=== PATIENT | male | born 1965 | race Caucasian/White ===

== ENCOUNTER → 2022-07-03 | Outpatient (CLI) | payer OTHER ==
--- NOTE | 2022-07-03 13:40 | CT ---
EXAMINATION TYPE: CT angio chest DATE OF EXAM: 07/03/2022 COMPARISON: None HISTORY: 56-year-old male I71.4, Ascending aortic aneurysm. TECHNIQUE: Contiguous axial scanning of the chest performed without and with IV Contrast, patient inj ected with 100ml mL of Isovue 370. Coronal/sagittal MIP reconstructions performed. 3-D reconstruction s generated on a dedicated independent workstation. CT DLP: 1164.9 mGycm Automated exposure control for dose reduction was used. FINDINGS: Heart normal size without pericardial effusion. Aneurysm aortic root at 4.3 cm. Mild aneurysm ascending aorta 4.1 cm. Conventional arch vessel branching anatomy. Descending thoracic aorta normal caliber. No evidence for aortic dissection. Initial noncontrast images show no evidence for acute intramural h ematoma. No thoracic lymphadenopathy by CT size criteria. 4 mm subpleural pulmonary nodule posterior left upper lobe, axial image 10. Some strandy scarring or atelectasis right middle lobe and posterior left base. No consolidation or pleural effusion. Small hiatal hernia. Otherwise, visualized upper abdomen shows scattered colonic diverticulosis. Mild degenerative disc disease mid to lower thoracic spine. IMPRESSION: 1. ANEURYSMAL AORTIC ROOT AND ASCENDING THORACIC AORTA AT 4.3 AND 4.1 CM, RESPECTIVELY. 2. SOME MINIMAL STRANDY SCARRING OR ATELECTASIS IN THE LUNGS. 3. A 4 MM POSTERIOR LEFT UPPER LOBE PULMONARY NODULE. 6 MONTH FOLLOW-UP CT CHEST TO REASSESS. 4. INCIDENTAL: SMALL HIATAL HERNIA. COLONIC DIVERTICULOSIS.
== END | disposition home or self-care (01) ==
LOC: RADCTMAIN 09:09
PROVIDERS: ATTEND Internal Medicine
DX: I71.21 Aneurysm of the ascending aorta, without rupture (principal); R91.1 Solitary pulmonary nodule; K44.9 Diaphragmatic hernia without obstruction or gangrene; K57.30 Diverticulosis of large intestine without perforation or abscess without bleeding
CPT/HCPCS: 71275; Q9967

== ENCOUNTER → 2023-03-05 | Outpatient (CLI) | payer OTHER, BC ==
--- NOTE | 2023-03-05 10:27 | CT ---
EXAMINATION TYPE: CT angio chest CT DLP: 1115.60 mGycm, Automated exposure control for dose reduction was used. DATE OF EXAM: 03/05/2023 9:56 AM COMPARISON: 07/03/2022 CLINICAL INDICATION:Male, 57 years old with history of AAA; Thoracic AA w/out rupture TECHNIQUE/CONTRAST: CTA scan of the thorax is performed with IV Contrast, patient injected with 100 mL of Isovue 370, MIP images are created and reviewed these are created on a separate workstation.. FINDINGS: Lungs/Pleura: No evidence of focal consolidation, pleural effusion or pneumothorax. Stable nodule junior r the posterior aspect of the left lung apex near the major fissure measuring 5 mm. Airway: Large airways are patent. Heart: Heart is within normal limits for size. Vasculature: The aortic root measures up to 4.1 cm and at the level of the sinuses of Valsalva up to 4.4 cm. No evidence for intramural hematoma on noncontrast imaging. No evidence of intimal flap to buchanan ggest dissection. No additional evidence for aneurysm identified. Ascending Thoracic aorta measuring up to 3.9 cm. Origins of the aortic arch and descending thoracic aorta are within normal limits. Mediastinum: No gross evidence of adenopathy. Musculoskeletal: No acute osseous abnormalities Soft Tissues: Unremarkable. Lower neck: No significant findings. Upper Abdomen: Nonobstructing 2 mm left renal calculus. IMPRESSION: The aortic root measures up to 4.1 cm and at the level of the sinuses of Valsalva up to 4.4 cm. No ad ditional evidence for aortic aneurysm, dissection or pulmonary embolus.
== END | disposition home or self-care (01) ==
LOC: RADCTMAIN 09:11
PROVIDERS: ATTEND Internal Medicine
DX: I71.20 Thoracic aortic aneurysm, without rupture, unspecified (principal)
CPT/HCPCS: 71275; Q9967